=== PATIENT | male | born 1945 | race Caucasian/White ===

== ENCOUNTER 2016-12-28 07:45 | Emergency (ER) | payer BC ==
[~2016-12-28] VITALS: Ht 172.7 cm; Wt 105.4 kg
[2016-12-28 08:21] LABS: BASOPHILS % (AUTO) 0 % (0-2); EOSINOPHILS % (AUTO) 0 % (0-4); LYMPHOCYTES # (AUTO) 0.9 X10^3; MEAN CORPUSCULAR HEMOGLOBIN 30.5 PG (26.0-34.0); MEAN CORPUSCULAR HGB CONC 34.6 g/dL (31.0-37.0); MEAN CORPUSCULAR VOLUME 88 FL (80-100); MEAN PLATELET VOLUME 9.9 FL (6.0-9.5); MONOCYTES # (AUTO) 0.6 X10^3; MONOCYTES % (AUTO) 6 % (3-11); NEUTROPHILS # (AUTO) 9.3 X10^3; NEUTROPHILS % (AUTO) 85 % (51-67); PLATELET COUNT 173 10^3uL (150-450); WHITE BLOOD COUNT 10.87 10^3uL (4.0-11.0)
[2016-12-28 08:26] LABS: BILIRUBIN,URINE Negative (Negative); CLARITY,URINE Clear; COLOR,URINE Yellow; GLUCOSE, URINE (UA) Negative (Negative); LEUKOCYTE ESTERASE ,URINE Negative (Negative); UROBILINOGEN,URINE 0.2 mg/dL (0.2-1.0)
[2016-12-28 08:33] LABS: ALBUMIN 4.3 g/dL (3.4-5.0); ALKALINE PHOSPHATASE 89 U/L (38-126); ANION GAP 14.4 MEQ/L (3-15); BUN/CREATININE RATIO 16 (10-20); LIPASE* 131 U/L (23-300); TOTAL PROTEIN 7.6 g/dL (6.4-8.5)
[2016-12-28 08:39] LABS: RBC,URINE >100 /HPF; URINE CENTRIFUGED VOLUME 12 mL
--- NOTE | 2016-12-28 09:50 | Diagnostic Imaging Report ---
PROCEDURE: CT abdomen and pelvis without contrast. TECHNIQUE: Multiple contiguous axial images were obtained through the abdomen and pelvis without the use of intravenous contrast. INDICATION: Left flank pain. COMPARISON: None available. FINDINGS: There is minimal atelectasis within the right lung base. Otherwise, the lungs are clear. Mild cardiomegaly. No pericardial effusion. No pleural effusions. The kidneys are symmetric in size. There is mild hydronephrosis due to an obstructing 14 mm calculus at the left ureteropelvic junction (UPJ). There is also a nonobstructing 7 mm calculus in the lower pole of the left kidney. Mild induration along the nondilated distal left ureter may relate to a recently passed smaller calculus. No right renal or ureteral calculi. The urinary bladder is distended without intraluminal calculi or significant wall thickening. The prostate is enlarged measuring 5.7 x 4.9 cm. Evaluation of the abdominal viscera is mildly limited without IV contrast. Diffuse hypoattenuation of the liver is indicative of hepatic steatosis. The spleen, pancreas, and adrenals are normal. The stomach is decompressed. No bowel obstruction. The gallbladder is normal. No pericolonic inflammatory changes. The appendix is normal. Normal caliber abdominal aorta with mild atherosclerotic plaquing. No abdominal or pelvic lymphadenopathy. No concerning osseous lesions. There are small fat-containing inguinal hernias bilaterally. 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 IMPRESSION: 1. An obstructing 14 mm stone in the proximal left ureter at the UPJ results in mild left hydronephrosis. 2. There is also a 7 mm nonobstructing calculus in the lower pole of the left kidney. 3. Induration along the left ureter is likely due to the recent passage of an additional stone. 4. Diffuse hepatic steatosis. Dictated by: Dictated on workstation # [id number]
--- NOTE | 2016-12-28 09:59 | NUR ---
PT DENIES NEED FOR ANYTHING AT THIS TIME. CL
[2016-12-28] MEDS ORDERED: HYDR-3702 PO (10:18)
[2016-12-28] MEDS ORDERED: ONDAN4ODT PO (10:18)
[2016-12-28] MEDS ORDERED: TAMS-8 PO (10:18)
[2016-12-28 10:25] VITALS: BP 140/84
== END 2016-12-28 10:27 | disposition home or self-care (01) ==
LOC: ED 07:48
DX: N13.2 Hydronephrosis with renal and ureteral calculous obstruction (principal)
CPT/HCPCS: 36415; 74176; 80053; 81003; 81015; 83690; 85025; 86140; 99283